=== PATIENT | male | born 1955 | race Caucasian/White ===

== ENCOUNTER 2024-09-08 05:54 | Day surgery (SDC) | payer OTHER ==
[2024-09-04 11:43] VITALS: BMI 24.4
[2024-09-08] MEDS ORDERED: ERYTHROMYCIN 0.5% OPHTHALMIC OINTMENT 3.5 GM TUBE ONE (07:11)
[2024-09-08] MEDS ORDERED: BUPIVACAINE HCL/PF 0.5% (5MG/ML) 10 ML VIAL ONE (07:12)
[2024-09-08] MEDS ORDERED: TETRACAINE 0.5% OPHTH SOLN 2 ML BOTTLE ONE (07:12)
[2024-09-08] MEDS ORDERED: GENTAMICIN SO4 80 MG/2 ML VIAL ONE (07:12)
[2024-09-08] MEDS ORDERED: POVIDONE-IODINE 5% OPHTHALMIC PREP 30 ML SOLUTION ONE (07:12)
[2024-09-08] MEDS ORDERED: LIDOCAINE 1%/EPI 1:100000 (20 ML MULTI DOSE VIAL) ONE (07:12)
[2024-09-08] MEDS ORDERED: PROPOFOL 20 ML ONE ×2 (07:50→08:42)
[2024-09-08] MEDS ORDERED: MIDAZOLAM HCL 2 MG/2 ML SINGLE DOSE VIAL ONE (07:52)
[2024-09-08] MEDS ORDERED: ETOMIDATE 20 MG/10 ML VIAL IVPUSH ONE (07:56)
[2024-09-08] MEDS ORDERED: PHENYLEPHRINE HCL 10 MG/1 ML SINGLE DOSE VIAL ONE ×2 (08:05)
[2024-09-08] MEDS ORDERED: CLINDAMYCIN PHOSPHATE 600 MG/4 ML VIAL ONE (08:16)
[2024-09-08] MEDS: ACETAMINOPHEN 1000 MG/100 ML BAG IVPB ONE (10:05)
[2024-09-08] MEDS ORDERED: PROMETHAZINE HCL 25 MG/1 ML VIAL ONE ×2 (10:08→11:01)
[2024-09-08] MEDS: PROMETHAZINE HCL 25 MG/1 ML VIAL IVPB PRN (10:10)
[2024-09-08 10:17] VITALS: RESP 16
[2024-09-08] MEDS ORDERED: MEPERIDINE HCL 25 MG/ML VIAL ONE (11:01)
[2024-09-08] MEDS: MEPERIDINE HCL 25 MG/ML VIAL IM ONE ×2 (11:10→12:25)
[2024-09-08] MEDS: PROMETHAZINE HCL 50 MG/1 ML AMP IM ONE (11:10)
[2024-09-08 11:27] VITALS: PULSE 71; TEMP 96.9
[2024-09-08] MEDS: ARTIFICIAL TEARS OPHTHALMIC DROPS OD PRN (13:00)
[2024-09-08 13:33] VITALS: BP 133/72
== END 2024-09-08 14:30 | disposition home or self-care (01) ==
LOC: FASU 05:54
PROVIDERS: ATTEND Ophthalmology
PROC: 0KX10Z2 Transfer Facial Muscle with Skin and Subcutaneous Tissue, Open Approach (ICD-10-PCS; 2024-09-08)
PROC: 08SR0ZZ Reposition Left Lower Eyelid, Open Approach (ICD-10-PCS; principal; 2024-09-08 08:14)
DX: C44.1192 Basal cell carcinoma of skin of left lower eyelid, including canthus (principal)
CPT/HCPCS: 82962; 88304-TC; 94760; J0131